=== PATIENT | female | born 1960 | race African-American/Black ===

== ENCOUNTER 2019-01-15 09:11 | Inpatient (IN) ==
[2019-01-15] MEDS ORDERED: ASPIRIN 325 MG TABLET PO STA (10:59)
[2019-01-15] MEDS ORDERED: FUROSEMIDE 40 MG/4 ML VIAL IV STA (10:59)
[2019-01-15] MEDS ORDERED: METOPROLOL TARTRATE 5 MG/5 ML VIAL IV STA (10:59)
[2019-01-15 11:04] LABS: Basophils % 0.5 % (0.0-0.8); Eosinophils # 0.2 10*3/uL (0.0-0.87); Eosinophils % 2.5 % (0.00-10.9); Hematocrit 43.1 VOL% (35.7-47.0); Hemoglobin 13.6 GM/DL (12.0-16.0); Immature Granulocytes % 0.8 %; Immature Granulocytes Absolute 0.05 #; Lymphocytes # 1.8 10*3/uL (1.4-4.0); Lymphocytes % 29.3 % (21.3-54.2); Mean Corpuscular HGB Conc 31.6 GM/DL (32-36); Mean Corpuscular Volume 92.7 FL (87-102); Mean Platelet Volume 12.5 FL (9.6-12.0); Monocytes % 8.2 % (1.7-12.7); Neutrophils % 58.7 % (38.7-73.9); Platelet Count 191 T/CUMM (130-400); Red Blood Count 4.65 MC/CUMM (3.8-5.5); Red Cell Distribution Width 12.6 % (9.3-17.3); White Blood Count 6.1 T/CUMM (4-12)
[2019-01-15 11:11] LABS: PT Patient Result 10.6 SECS (9.6-12.2); Partial Thromboplastin Time 27.5 SECS (20.8-36.0)
[2019-01-15 11:24] LABS: Albumin 3.4 G/DL (3.4-5.0); Bilirubin,Total 0.8 MG/DL (0.2-1.0); Calcium 9.1 MG/DL (8.5-10.1); Osmolality,Calculated 290.5 MOS/KG (273-304); Total Protein 7.6 G/DL (6.4-8.3)
[2019-01-15] MEDS ORDERED: ACETAMINOPHEN 325 MG TABLET PO PRN (14:27)
[2019-01-15] MEDS ORDERED: PROMETHAZINE 25 MG TABLET PO PRN (14:27)
[2019-01-15] MEDS ORDERED: DOCUSATE SODIUM 100 MG CAPSULE PO PRN (14:27)
[2019-01-15] MEDS ORDERED: traZODone 50 MG TABLET PO PRN (14:27)
[2019-01-15] MEDS ORDERED: DEXTROSE 50% 25 GM/50 ML VIAL IV PRN (16:01)
[2019-01-15] MEDS ORDERED: GLUCAGON 1 MG VIAL IM PRN (16:01)
[2019-01-15 17:28] LABS: Troponin I < 0.015 NG/ML (0.00-0.045)
[2019-01-15] MEDS: INSULIN LISPRO 100 UNIT/ML SUBCUT SCH ×2 (17:36→20:42)
[2019-01-15] MEDS: LOSARTAN 25 MG TABLET PO SCH (17:36)
[2019-01-15 20:14] LABS: Troponin I < 0.015 NG/ML (0.00-0.045)
[2019-01-15] MEDS: ENOXAPARIN 40 MG/0.4 ML SYRINGE SUBCUT SCH (20:43)
[2019-01-16 05:40] LABS: Calcium 9.2 MG/DL (8.5-10.1); Osmolality,Calculated 283.8 MOS/KG (273-304); Risk Ratio 4.46; VLDL CHOLESTEROL 52.4 MG/DL
[2019-01-16] MEDS: LOSARTAN 25 MG TABLET PO SCH (08:19)
[2019-01-16] MEDS: ASPIRIN EC 81 MG TABLET PO SCH (08:19)
[2019-01-16] MEDS: hydrALAZINE 20 MG/1 ML VIAL IV PRN ×2 (08:20→21:24)
[2019-01-16] MEDS: INSULIN LISPRO 100 UNIT/ML SUBCUT SCH ×4 (08:47→21:13)
[2019-01-16] MEDS ORDERED: REGADENOSON 0.4 MG/5 ML SYRINGE IV ONE (10:24)
[2019-01-16] MEDS ORDERED: carvediloL 3.125 MG TABLET PO SCH (13:30)
[2019-01-16] MEDS: carvediloL 6.25 MG TABLET PO SCH ×2 (13:51→21:12)
[2019-01-16] MEDS: ROSUVASTATIN 20 MG TABLET PO SCH (21:12)
[2019-01-16] MEDS: GABAPENTIN 100 MG CAPSULE PO SCH (21:12)
[2019-01-16] MEDS: ENOXAPARIN 40 MG/0.4 ML SYRINGE SUBCUT SCH (21:14)
[2019-01-16] MEDS: HYDROcodone/HOMATROPINE 5 ML UDCUP PO PRN (21:46)
[2019-01-17] MEDS: ASPIRIN EC 81 MG TABLET PO SCH (09:13)
[2019-01-17] MEDS: carvediloL 6.25 MG TABLET PO SCH ×2 (09:13→20:55)
[2019-01-17] MEDS: KETOROLAC 30 MG/1 ML VIAL IV SCH ×3 (09:14→20:57)
[2019-01-17] MEDS: INSULIN LISPRO 100 UNIT/ML SUBCUT SCH ×4 (09:14→20:55)
[2019-01-17] MEDS: amLODIPine 10 MG TABLET PO SCH (09:17)
[2019-01-17] MEDS: LOSARTAN 50 MG TABLET PO SCH (09:17)
[2019-01-17] MEDS: HYDROcodone/HOMATROPINE 5 ML UDCUP PO PRN ×2 (15:23→23:27)
[2019-01-17] MEDS: GABAPENTIN 100 MG CAPSULE PO SCH (20:55)
[2019-01-17] MEDS: ROSUVASTATIN 20 MG TABLET PO SCH (20:55)
[2019-01-17] MEDS: ENOXAPARIN 40 MG/0.4 ML SYRINGE SUBCUT SCH (21:01)
[2019-01-18 04:54] LABS: Basophils % 0.3 % (0.0-0.8); Eosinophils # 0.3 10*3/uL (0.0-0.87); Hematocrit 40.7 VOL% (35.7-47.0); Hemoglobin 12.8 GM/DL (12.0-16.0); Immature Granulocytes % 0.3 %; Immature Granulocytes Absolute 0.02 #; Lymphocytes # 2.3 10*3/uL (1.4-4.0); Lymphocytes % 39.7 % (21.3-54.2); Mean Corpuscular HGB Conc 31.4 GM/DL (32-36); Mean Corpuscular Volume 91.1 FL (87-102); Mean Platelet Volume 11.7 FL (9.6-12.0); Monocytes % 16.1 % (1.7-12.7); Neutrophils % 38.6 % (38.7-73.9); Platelet Count 183 T/CUMM (130-400); Red Blood Count 4.47 MC/CUMM (3.8-5.5); Red Cell Distribution Width 12.4 % (9.3-17.3); White Blood Count 5.8 T/CUMM (4-12)
[2019-01-18 05:07] LABS: Calcium 9.1 MG/DL (8.5-10.1); Osmolality,Calculated 280.8 MOS/KG (273-304)
[2019-01-18 05:17] LABS: Eosinophils 4 % (0-10); Lymphocytes 38 % (20-55); Platelet Estimate Adequate; Segmented Neutrophils 43 % (50-85); Total Cells Counted 100
[2019-01-18 05:18] LABS: Hypochromasia 1+
[2019-01-18] MEDS ORDERED: SODIUM CHLORIDE 0.9% 1,000 ML IV SCH ×2 (06:00→09:30)
[2019-01-18] MEDS: amLODIPine 10 MG TABLET PO SCH (07:45)
[2019-01-18] MEDS: ASPIRIN EC 81 MG TABLET PO SCH (07:45)
[2019-01-18] MEDS: LOSARTAN 50 MG TABLET PO SCH (07:45)
[2019-01-18] MEDS: carvediloL 6.25 MG TABLET PO SCH (07:45)
[2019-01-18] MEDS ORDERED: LIDOCAINE 1% 20 ML VIAL ONE (07:49)
[2019-01-18] MEDS ORDERED: NITROGLYCERIN DRIP 0 MG/0 ML BOTTLE IV ONE (07:49)
[2019-01-18] MEDS ORDERED: VERAPAMIL 5 MG/2 ML VIAL ONE (07:49)
[2019-01-18] MEDS ORDERED: diphenhydrAMINE CAP 25 MG CAPSULE PO ONE (08:02)
[2019-01-18] MEDS ORDERED: DIAZEPAM 5 MG TABLET PO ONE (08:02)
[2019-01-18] MEDS ORDERED: fentaNYL 100 MCG/2 ML VIAL ONE (08:37)
[2019-01-18] MEDS ORDERED: MIDAZOLAM 2 MG/2 ML VIAL ONE (08:37)
[2019-01-18] MEDS: INSULIN LISPRO 100 UNIT/ML SUBCUT SCH ×2 (08:51→12:38)
[2019-01-18 11:53] VITALS: BP 137/89
== END 2019-01-18 15:08 | disposition home or self-care (01) | DRG 287 ==
LOC: N.ED 09:11 → N.EDINP 09:11 → N.5E 14:49 → N.TELEN 14:53
PROVIDERS: ADMIT Internal Medicine Geriatric Medicine; ATTEND Internal Medicine Geriatric Medicine
PROC: CLCCHCL (ICD-10-PCS; 2019-01-18 09:15)